=== PATIENT | female | born 1975 | race Two or more races ===

== ENCOUNTER 2023-09-22 15:00 | Emergency (ER) | payer OTHER ==
[~2023-09-22] VITALS: Ht 162.6 cm; Wt 61.7 kg
[~2023-09-22 15:00] MED LIST: PROVENTIL; PULMICORT
[2023-09-22] MEDS ORDERED: MONTELUKAST SOD10 MG PO (15:16)
[2023-09-22] MEDS ORDERED: BUDESONIDE-FO10.2 G1 IH (15:16)
[2023-09-22 17:41] LABS: HEMATOCRIT 38.1 % (36.0-45.00); HEMOGLOBIN 12.3 g/dL (12.0-15.00); MEAN CORPUSCULAR HEMOGLOBIN 25.4 pg (27.00-32.0); MEAN CORPUSCULAR HGB CONC 32.2 g/dl (32.0-36.0); PLATELET COUNT 239 K/uL (150-450); RED BLOOD COUNT 4.82 M/uL (4.00-6.00)
[2023-09-22 17:42] LABS: RED CELL DISTRIBUTION WIDTH 17.1 % (11.5-14.5)
[2023-09-22 18:01] LABS: CALCIUM 10.2 mg/dL (8.5-10.1); CREATININE SERUM 0.74 mg/dL (0.55-1.02); GFR 84.87; POTASSIUM 4.2 mEq/L (3.5-5.1)
== END 2023-09-22 19:00 | disposition home or self-care (01) ==
LOC: ER 15:00
PROVIDERS: General Practice
DX: I10 Essential (primary) hypertension (principal); Z88.8 Allergy status to other drugs, medicaments and biological substances